=== PATIENT | female | born 1980 | race Two or more races ===

== ENCOUNTER 2024-11-06 18:44 | Emergency (ER) | payer MEDICAID, SELFPAY ==
[2024-11-06 18:55] VITALS: BP 153/99; PULSE 74; RESP 16; TEMP 36.8; O2SAT 100
--- NOTE | 2024-11-06 19:05 | XR_ITS ---
Examination: CT brain head without contrast. 2-D sagittal coronal reconstructions Date and time of exam:November 06, 2024 1950 hrs. Indications: Left-sided body numbness and headache facial paralysis with hematuria today CTDI: vol (mGy):43.8 DLP: (mGycm):886 Technique: Multiple CT axial sections of the brain have been obtained, 5 mm slice thickness. Contrast has not been administered. 2-D sagittal, coronal reconstructions have been obtained Low dose protocols were performed. One or more of the following dose reduction techniques were used; automated exposure control, adjustment of the mA and/or KV according to patient size, use of iterative reconstruction technique. Findings: No significant ventricular enlargement. Intra-axial or extra-axial hemorrhage density is not seen. No mass effect or midline shift Basal cisterns are not remarkable. Fourth ventricle is midline. Cranial vault intact. Impression: Negative for acute hemorrhage, mass effect or midline shift As clinically warranted, brain MRI follow-up would best assess for demyelinating disease, acute ischemic change
--- NOTE | 2024-11-06 19:06 | PD.EDRME ---
Rapid Medical Screening Exam E Arrival date/time: 11/06/24 18:44 44-year-old female past medical history of Jimenez's palsy presents emergency department complaining of left-sided facial numbness and inability to close her left eye when she woke up this morning. Patient reports this has happened in the past and was told she had an inflamed nerve and then resolved on its own. Chief Complaint: Neuro Symptoms/Deficit Vital signs: Vital Signs Temperature 98.2 F 11/06/24 18:55 Pulse Rate 74 11/06/24 18:55 Respiratory Rate 16 11/06/24 18:55 Blood Pressure 153/99 H 11/06/24 18:55 Pulse Oximetry (%) 100 11/06/24 18:55 Oxygen Delivery Method Room Air 11/06/24 18:55 Vital signs reviewed by provider: Yes
[2024-11-06 19:28] LABS: Basophils % (Auto) 0 % (0-2.5); Eosinophils # (Auto) 0.2 Thou/mm3 (0.0-0.5); Eosinophils % (Auto) 3 % (0-10); Hemoglobin 12.9 g/dL (12.0-16.0); Immature Granulocytes % (Auto) 0 % (0-0); Immature Granulocytes Auto 0.02 Thou/mm3 (0.00-0.00); Lymphocytes # (Auto) 2.6 Thou/mm3 (1.0-4.8); Lymphocytes % (Auto) 34 % (10-50); Mean Corpuscular HGB Conc 33.9 g/dl (31.0-37.0); Mean Corpuscular Hemoglobin 29.9 pg (25.0-35.0); Mean Corpuscular Volume 88 fL (80-100); Monocytes # (Auto) 0.7 Thou/mm3 (0.0-0.8); Monocytes % (Auto) 10 % (0-12); Neutrophils # (Auto) 4.1 Thou/mm3 (1.8-7.7); Neutrophils % (Auto) 54 % (37-80); Nucleated Red Blood Cell % 0 /100 WBC (0); Platelet Count 270 Thou/mm3 (140-440); RDW Standard Deviation 40.7 fL (36.4-46.3); Red Blood Count 4.32 Miln/mm3 (4.00-5.20); White Blood Count 7.6 Thou/mm3 (3.6-11.0)
[2024-11-06 19:42] LABS: Partial Thromboplastin Time 27.1 Seconds (22.0-36.0); Prothrombin Time 11.3 Seconds (9.0-12.2)
[2024-11-06 19:49] LABS: B-Type Natriuretic Peptide < 20 pg/mL (0-100)
[2024-11-06 19:55] LABS: Albumin, Serum 4.9 gm/dL (3.5-5.0); Albumin/Globulin Ratio 1.5 (1.2-2.2); Alkaline Phosphatase 71 U/L (46-116); Anion Gap 10 (7-16); Aspartate Amino Transferase 11 U/L (0-34); BUN/Creatinine Ratio 16 Ratio (12-20); Bilirubin,Total 0.5 mg/dL (0.3-1.2); Blood Urea Nitrogen 11 mg/dL (9-23); Calcium 9.6 mg/dL (8.3-10.6); Calcium (Corrected) 9.6 mg/dL (8.5-10.1); Carbon Dioxide 26.2 mMol/L (20.0-31.0); Chloride 104 mMol/L (98-107); Creatinine (Component) 0.7 mg/dL (0.6-1.3); Globulin 3.3 gm/dL (2.3-3.5); Glucose 91 mg/dL (74-106); Magnesium 1.9 mg/dL (1.6-2.6); Osmolality,Calculated 278 (275-295); Potassium 3.5 mMol/L (3.4-5.1); Sodium 140 mMol/L (136-145); Total Protein 8.2 gm/dL (5.7-8.2); Troponin I < 0.002 ng/mL (0.0-0.045); eGFR > 60 See Note
[2024-11-06 19:59] LABS: HCG,Qualitative Serum Negative
[2024-11-06 20:01] LABS: Alanine Aminotransferase 12 U/L (10-49)
--- NOTE | 2024-11-06 21:24 | EDNOTE_ITS ---
Neuro Symptoms Deficit-RME/HPI General Chief Complaint: Neuro Symptoms/Deficit Stated Complaint: FACIAL PARALYSS UPON WAKING TODAY Time Seen by Provider: 11/06/24 20:11 Source: patient Arrival date/time: 11/06/24 18:44 44-year-old female past medical history of Jimenez's palsy presents emergency department complaining of left-sided facial numbness and inability to close her left eye when she woke up this morning. Patient reports this has happened in the past and was told she had an inflamed nerve and then resolved on its own. Patient denies any fever, chills, sore throat, ear pain, cough, chest pain, dizziness, loss of balance, change in vision, focal weakness, or any other associated symptom. Mode of arrival: ambulatory Limitations: no limitations RME / HPI RME / HPI Narrative: 11/06/24 18:44 44-year-old female past medical history of Jimenez's palsy presents emergency department complaining of left-sided facial numbness and inability to close her left eye when she woke up this morning. Patient reports this has happened in the past and was told she had an inflamed nerve and then resolved on its own. Related Data Home Medications ?Medication ?Instructions ?Recorded ?Confirmed vit no.133-ferrous 800 tab PO QDAY 08/31/19 08/31/19 fumarate 28 mg-folic acid 800 mcg tablet () Previous Rx's ?Medication ?Instructions ?Recorded prednisone 20 mg tablet See Taper PO QDAY #22 tabs 11/06/24 valacyclovir 1 gram tablet 1,000 mg PO TID 7 days #21 tabs 11/06/24 white petrolatum-mineral oil 83 1 applic ophthalmic (eye) QDAY PRN 11/06/24 %-15 % eye ointment (Artificial dry eye(s) #3.5 grams Eye Lubricant) Allergies Allergy/AdvReac Type Severity Reaction Status Date / Time No Known Allergies Allergy Verified 11/06/24 18:55 Review of Systems Review of Systems Systems Reviewed: All systems reviewed, normal except as documented Constitutional Constitutional: Reports system reviewed and no additional complaints, except as documented, Denies body ache(s), Denies chills and Denies fever(s) Eyes Eyes: Reports system reviewed and no additional complaints, except as documented, Denies change in vision and Reports other (Inability to close left eye) ENT Ears, Nose, Mouth, and Throat: Reports system reviewed and no additional complaints, except as documented, Denies disequilibrium, Denies dizziness, Denies sore throat and Denies vertigo Cardiovascular Cardiovascular: Reports system reviewed and no additional complaints, except as documented, Denies chest pain and Denies dyspnea Respiratory Respiratory: Reports system reviewed and no additional complaints, except as documented, Denies chest congestion, Denies cough and Denies dyspnea Gastrointestinal Gastrointestinal: Reports system reviewed and no additional complaints, except as documented, Denies abdominal pain, Denies nausea and Denies vomiting Musculoskeletal Musculoskeletal: Reports system reviewed and no additional complaints, except as documented, Denies abnormal gait, Denies arthralgias and Reports other (Left- sided facial numbness) Integumentary/Breasts Skin/Breast: Reports system reviewed and no additional complaints, except as documented, Denies erythema, Denies rash and Denies wounds Neurologic Neurologic: Reports system reviewed and no additional complaints, except as documented, Denies abnormal gait, Denies disequilibrium, Denies dizziness and Denies vertigo Past Medical History Past Medical History NEUROLOGIC: Negative Neurological Disorders or Seizures CARDIAC: Negative Cardiac Disorders or Congestive Heart Failure RESPIRATORY: Negative Chronic Obstructive Pulmonary Disease (COPD) or Asthma GASTROINTESTINAL: Negative Gastrointestinal Disorders, Hepatitis or Colorectal Cancer GENITOURINARY: Negative Genitourinary Disorders, Renal Disease or Prostate Cancer REPRODUCTIVE: Negative Breast Cancer or Testicular Cancer MUSCULOSKELETAL: Negative Musculoskeletal Disorders or Bone Cancer ENDOCRINE: 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, 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); Negative Endocrine Disorders, Diabetes Mellitus Type 1, Hypoglycemia, Hyperthyroidism, Hypothyroidism, Parathyroid Disease, Pituitary Disease, Systemic Lupus Erythematosus, Syndrome of Inappropriate Antidiuretic Hormone (SIADH) or Graves' Disease HEMATOLOGIC: Negative Blood Disorders PSYCHO/SOCIAL: Negative Anxiety or Depression OTHER HISTORY: Negative Hospitalization, Autoimmune Disease, Down Syndrome, Developmental Delay, Shingles, Falls, Blood Transfusions, Blood Transfusion Reaction, Anesthesia Reactions, Organ Transplant, Chemotherapy, Radiation Therapy, Hyperbaric Therapy, MRSA, VRSA, Vancomycin-Resistant Enterococci, Human Immunodeficiency Virus (HIV), Chicken Pox, Measles, Mumps, Rubella ([place] Measles), Pertussis, Clostridium Difficile, Cancer, Breast Cancer, Cervical Cancer, Colorectal Cancer, Lung Cancer, Ovarian Cancer, Prostate Cancer or Testicular Cancer Family History FAMILY HISTORY: Negative Family Psychiatric Problems, Family Respiratory Disorders, Family Cardiac Disorders, Family Gastrointestinal Problems, Family Cancer, Family Surgery or Family Anesthesia Reaction Surgical History SURGICAL: Negative Section or Organ Transplant Social History SMOKING STATUS: Never smoker ED Exam General Limitations: Present no limitations General appearance: Present alert and in no apparent distress Head Head exam: Present atraumatic Eye Eye exam: Present normal appearance, PERRL and EOMI Expanded Eye Exam Eyelids: bilateral: normal inspection Pupils: Bilateral: regular, round and reactive Sclera/Conjunctival: bilateral: normal inspection ENT ENT exam: Present normal exam, normal oropharynx and mucous membranes moist Neck Neck exam: Present normal inspection, full ROM and trachea midline Chest Chest inspection: Present normal inspection and symmetric chest wall rise Respiratory Respiratory exam: Present normal lung sounds bilaterally Cardiovascular Cardiovascular exam: Present regular rate, normal rhythm and normal heart sounds Abdominal Exam Abdominal exam: Present soft and normal bowel sounds Extremities Exam Extremities exam: Present normal inspection and full ROM Back Exam Back exam: Present normal inspection and full ROM Neurological Exam Neurological exam: Present alert and oriented X3 Expanded Neurological Exam Patient oriented to: Present person, place and time Speech: Present fluid speech Cranial nerves: Normal: EOM function (II, III, IV, ), facial sensation (V), spinal accessory function (XI) and tongue deviation (XII) and Abnormal Left: facial palsy (VII) Cerebellar function: Normal: finger to nose and heel to ochoa Cerebellar function: Present normal gait Motor strength - LUE: 5/5 Motor strength - RUE: 5/5 Motor strength - LLE: 5/5 Motor strength - RLE: 5/5 Coma scale eye opening: spontaneous Coma scale motor response: obeys commands Coma scale verbal response: oriented Coma scale total: 15 Psychiatric Psychiatric exam: Present normal affect and normal mood Skin Skin exam: Present warm, dry, intact and normal color Course Quality Measures none Orders Category Date Time Status CT head/brain wo con Stat Exams 11/06/24 19:05 Completed EKG (ED Only) Stat Exams 11/06/24 19:05 Stop Req B-Type Natriuretic Peptide Stat Lab 11/06/24 19:11 Completed CBC Stat Lab 11/06/24 19:11 Completed Comprehensive Metabolic Panel Stat Lab 11/06/24 19:11 Completed HCG,Qualitative Serum Stat Lab 11/06/24 19:11 Completed Magnesium Stat Lab 11/06/24 19:11 Completed Partial Thromboplastin Time Stat Lab 11/06/24 19:11 Completed Prothrombin Time with INR Stat Lab 11/06/24 19:11 Completed Troponin I Stat Lab 11/06/24 19:11 Completed Acetaminophen Tab [Tylenol ES Tab] Med 11/06/24 21:55 Discontinued 1,000 mg PO X1 ONE Artificial Tears Med 11/06/24 21:55 Discontinued See Dose Instructions LEFT EYE X1 ONE predniSONE Med 11/06/24 21:55 Discontinued 60 mg PO X1 ONE Vital Signs Vital signs: Vital Signs Temperature 98.2 F 11/06/24 18:55 Pulse Rate 74 11/06/24 18:55 Respiratory Rate 16 11/06/24 18:55 Blood Pressure 153/99 H 11/06/24 18:55 Pulse Oximetry (%) 100 11/06/24 18:55 Oxygen Delivery Method Room Air 11/06/24 18:55 100% room air within normal limits Neuro Symptoms / Deficit MDM Narrative MDM Narrative:: 44-year-old female past medical history of Jimenez's palsy presents emergency department complaining of left-sided facial numbness and inability to close her left eye when she woke up this morning. Patient reports this has happened in the past and was told she had an inflamed nerve and then resolved on its own. Patient denies any fever, chills, sore throat, ear pain, cough, chest pain, dizziness, loss of balance, change in vision, focal weakness, or any other associated symptom. Patient GCS of 15 with steady gait. Cranial nerve exam normal except for cranial nerve VII on exam patient observed to have left facial droop and difficulty closing left eye. Patient denies any visual changes. Patient reports symptoms are similar to previous episode. CT scan of head was unremarkable. CBC and CMP were also unremarkable. Patient treated with prednisone and taper instructions were given as well as antiviral. Patient also prescribed eye lubrication and instructed to wear glasses and use artificial tears during the day and avoid using eye patch due to risk of corneal abrasion. Instructed to follow-up with primary care provider and cell lead upon discharge. Instructed to return to emergency department for any worsening symptoms or as needed. Patient data External records reviewed:: [facility] previous records Clinical information provided by:: patient Social determinants that could affect healthcare access:: none Patient has the following chronic illnesses:: See chart How is presenting disease/condition affected by chronic disease/condition?: uneffected by Evaluation data The following diagnostics were reviewed and interpreted by me:: lab results and radiology exam(s) Lab and/or radiology exams considered but not ordered:: Ordered Interpretation Summary: Interpreted by me Medications / Prescriptions Medications or Prescriptions considered but not ordered:: Ordered Medication administrations:: Medication Administration History Discontinued Medications Acetaminophen (Acetaminophen 500 Mg Tablet) 1,000 mg PO X1 ONE Stop: 11/06/24 21:56 Last Admin: 11/06/24 22:05 Dose: 1,000 mg Documented By: DORI Artificial Tears (Artificial Tears 225 Drop/15 Ml Btl) 0 drop LEFT EYE X1 ONE Stop: 11/06/24 21:56 Last Admin: 11/06/24 22:06 Dose: 2 drop Documented By: DORI Prednisone (Prednisone 20 Mg Tablet) 60 mg PO X1 ONE Stop: 11/06/24 21:56 Last Admin: 11/06/24 22:06 Dose: 60 mg Documented By: DORI Given Consultations Consultation(s) initiated? (list below): No Diagnosis Neuro Differential Diagnosis: subarachnoid hemorrhage, peripheral neuropathy, cerebrovascular accident and transient cerebral ischemia Most likely diagnosis given after review of the tests above:: Jimenez's palsy Admission Indicated Admission indicated?: not indicated Admission Request Was there a request for admission?: No Disposition Plan Disposition Plan: Discharge Discharge Attestation Discharge Attestation: The patient and all family members were given an opportunity to ask questions and understood the discharge instructions. Discharge instructions specifically effects, indications for sooner follow up or return to the emergency department, and the expected course of current diagnosis. Patient condition: Stable Discharge Plan Plan Patient Disposition: HOME (Self Care) Disposition Comment: Stable Prescriptions/Referrals Prescriptions/Med Rec: New prednisone 20 mg tablet See Taper PO QDAY Qty: 22 0RF Taper: Prednisone Taper 60 mg DAILY for 5 Days and 0 Hour 50 mg DAILY for 1 Day and 0 Hour 40 mg DAILY for 1 Day and 0 Hour 30 mg DAILY for 1 Day 20 mg DAILY for 1 Day 10 mg DAILY for 1 Day valacyclovir 1 gram tablet 1,000 mg PO TID 7 Days Qty: 21 0RF Artificial Eye Lubricant 83-15 % ointment 1 applic ophthalmic (eye) QDAY PRN (Reason: dry eye(s)) Qty: 3.5 0RF No Action 28-800 mg-mcg Tablet 800 tab PO QDAY Problem List Clinical Impression: Jimenez's palsy Patient/Caregiver Discharge Instructions Discharge Activity: activity as tolerated Education Materials: Jimenez's Palsy, ED Jimenez's Palsy Additional Instructions: Drink plenty of fluids and stay hydrated. During daytime wear glasses and [id number] artificial tears. Overnight apply ophthalmic lubricant and tape your eye closed. Avoid wearing eye patch as as I may easily open under the patch and can cause an corneal abrasion. Take medications as prescribed. Close follow-up with primary care provider in 2 to 3 days. Return to emergency department for any worsening symptoms or as needed. Print Language: Thai Stand Alone Forms: Mery Award Info., Patient Portal Info Letter PA/ACADEMIC COORDINATOR Supervising Physician PA/GYPSY Supervising Physician: Dr. Dennis
[2024-11-06] MEDS: ACETAMINOPHEN 500 MG TABLET 1000 MG PO (22:05)
[2024-11-06] MEDS: predniSONE 20 MG TABLET 60 MG PO (22:06)
[2024-11-06] MEDS: Artificial Tears 225 DROP/15 ML BTL LEFT EYE (22:06)
== END 2024-11-06 22:15 | disposition home or self-care (01) ==
LOC: SERX 22:14
PROVIDERS: Emergency Provider Emergency Medicine; PCP Nurse Practitioner Family
DX: G51.0 Bell's palsy (principal)
CPT/HCPCS: 36415; 70450; 80053; 80307; 81001; 83735; 83880; 84484; 84703; 85025; 85610; 85730; 99284; J7512; A9270